=== PATIENT | male | born 1995 | race Caucasian/White ===

== ENCOUNTER 2016-08-03 07:36 | Emergency (ER) | payer OTHER ==
[2016-08-03 07:51] VITALS: BP 155/70; PULSE 97; RESP 18; TEMP 98.6
--- NOTE | 2016-08-03 08:04 | ED ---
General Adult HPI - General Chief complaint: ENT Stated complaint: Stomach pain/sore throat Time Seen by Provider: 08/03/16 07:40 Source: patient, RN notes reviewed Mode of arrival: ambulatory Limitations: no limitations - History of Present Illness Initial comments: This is a 20-year-old male with a benign history other than smoking history who had the onset over last 1-2 weeks of a cough sometimes productive with yellow phlegm he is at some chills and sweats with it he states he coughed so hard that he will sometimes vomit. He had a slight amount of blood last time he vomited. He states he had a sore throat with plugged up sinuses he started over -the-counter medication with no improvement. Also of note other members of the family are also experiencing similar symptoms. He denies any overt rhinorrhea however. - Related Data Home Medications Medication Instructions Recorded Confirmed Cough Medicine Otc (Unknown) 1 dose PO Q4H PRN 08/03/16 08/03/16 guaiFENesin [Mucinex] 600 mg PO Q12H PRN 08/03/16 08/03/16 Previous Rx's Medication Instructions Recorded Albuterol Inhaler [Ventolin Hfa 2 puff INHALATION Q6HR PRN #1 08/03/16 Inhaler] inhaler Azithromycin [Zithromax Z-pack] 250 mg PO DIRECTED #6 tab 08/03/16 Allergies Allergy/AdvReac Type Severity Reaction Status Date / Time No Known Allergies Allergy Verified 01/10/16 15:38 Review of Systems ROS Statement: Those systems with pertinent positive or pertinent negative responses have been documented in the HPI. ROS Other: All systems not noted in ROS Statement are negative. Past Medical History Past Medical History: No Reported History History of Any Multi-Drug Resistant Organisms: None Reported Past Surgical History: No Surgical Hx Reported Past Psychological History: ADD/ADHD Smoking Status: Current every day smoker Past Alcohol Use History: None Reported Past Drug Use History: None Reported General Exam - General Exam Comments Initial Comments: This is a well-developed well-nourished awake alert oriented 3 male Limitations: no limitations General appearance: alert, in no apparent distress Head exam: Present: atraumatic, normocephalic, normal inspection Eye exam: Present: normal appearance, PERRL, EOMI. Absent: scleral icterus, conjunctival injection, periorbital swelling Pupils: Present: normal accommodation ENT exam: Present: mucous membranes moist, TM's normal bilaterally, other ( Minimal pharyngeal hyperemia no exudates) Neck exam: Present: normal inspection. Absent: tenderness, meningismus, lymphadenopathy Respiratory exam: Present: chest wall tenderness (Some right lateral and anterior chest wall tenderness palpation no step-off or crepitation), decreased breath sounds Cardiovascular Exam: Present: regular rate, normal rhythm, normal heart sounds. Absent: systolic murmur, diastolic murmur, rubs, gallop, clicks GI/Abdominal exam: Present: soft Extremities exam: Present: normal inspection, full ROM, normal capillary refill. Absent: tenderness, pedal edema, joint swelling, calf tenderness Back exam: Present: normal inspection Neurological exam: Present: alert, oriented X3, CN II-XII intact Psychiatric exam: Present: normal affect, normal mood Skin exam: Present: warm, dry, intact, normal color. Absent: rash Course Vital Signs 08/03/16 07:47 Temperature 98.6 F Pulse Rate 97 Respiratory 18 Rate Blood Pressure 155/70 O2 Sat by Pulse 98 Oximetry Medical Decision Making - Medical Decision Making I did discuss the findings with the patient including smoking cessation which the conversation included the need for stopping and risk factors. I did discuss this with the patient for about 3.2 minutes. Patient be placed on appropriate antibiotics and inhaler a note for work. - Radiology Data Radiology results: report reviewed (X-ray was reviewed and report was reviewed there is evidence of a early infiltrate right upper lobe left lower lobe.), image reviewed Disposition Clinical Impression: Pneumonia, Smoking Disposition: HOME SELF-CARE Condition: Good Instructions: Bacterial Pneumonia (ED), How to Stop Smoking (ED), Secondhand Smoke Exposure in Children (ED) Prescriptions: Albuterol Inhaler [Ventolin Hfa Inhaler] 2 puff INHALATION Q6HR PRN #1 inhaler PRN Reason: Dyspnea Azithromycin [Zithromax Z-pack] 250 mg PO DIRECTED #6 tab
--- NOTE | 2016-08-03 08:37 | XR ---
EXAMINATION TYPE: XR chest 2V DATE OF EXAM: 08/03/2016 8:22 AM COMPARISON: None HISTORY: 20-year-old male trauma, cough and congestion TECHNIQUE: PA and lateral views FINDINGS: The cardiomediastinal silhouette, aorta, and pulmonary vasculature are within normal limits. There is mild diffuse increased interstitial densities and some subtle patchy density suggested in the right perihilar region and along the left heart margin. No pleural effusion. No pneumothorax. IMPRESSION: Some changes which suggest bronchitis or uncontrolled asthma. However, opacity is somewhat more focal at the right suprahilar region and along the left base. These could represent areas of atelectasis o r early developing infiltrates.
== END 2016-08-03 09:58 | disposition home or self-care (01) ==
LOC: EC 07:36
DX: J18.9 Pneumonia, unspecified organism (principal); F17.200 Nicotine dependence, unspecified, uncomplicated
CPT/HCPCS: 71020; 99284

== ENCOUNTER → 2017-04-13 | Outpatient (CLI) | payer OTHER ==
[2017-04-13 18:25] LABS: Basophils % (A) 0 %; CH 30.5; CHCM 32.1; Eosinophils # (A) 0.1 k/uL (0-0.7); Eosinophils % (A) 2 %; HCT 51.1 % (39.0-53.0); HGB 16.2 gm/dL (13.0-17.5); Luc # (Auto) 0.13; Luc % (Auto) 2; Lymphocytes # (A) 1.7 k/uL (1.0-4.8); Lymphocytes % (A) 30 %; MCH 30.2 pg (25.0-35.0); MCHC 31.6 g/dL (31.0-37.0); MCV 95.3 fL (80.0-100.0); Monocytes # (A) 0.3 k/uL (0-1.0); Monocytes % (A) 5 %; Neutrophils # (A) 3.5 k/uL (1.3-7.7); Neutrophils % (A) 61 %; RBC 5.36 m/uL (4.30-5.90); RDW 12.8 % (11.5-15.5); WBC 5.8 k/uL (3.8-10.6); WBC (Perox) 5.62
[2017-04-13 18:32] LABS: ALT 35 U/L (21-72); AST 24 U/L (17-59); Alkaline Phosphatase 100 U/L (38-126); Anion Gap 12 mmol/L; Blood Urea Nitrogen 14 mg/dL (9-20); Carbon Dioxide 24 mmol/L (22-30); Chloride 106 mmol/L (98-107); Cholesterol 160 mg/dL (<200); Glucose 95 mg/dL (74-99); HDL Cholesterol 59 mg/dL (40-60); Non-African American GFR(MDRD) >60 (>60 ml/min/1.73 sqM); Potassium 4.1 mmol/L (3.5-5.1); Sodium 142 mmol/L (137-145); Total Bilirubin 0.4 mg/dL (0.2-1.3); Total Protein 6.9 g/dL (6.3-8.2)
== END | disposition home or self-care (01) ==
LOC: MMGSC 11:14
PROVIDERS: ATTEND Family Medicine
DX: Z00.00 Encounter for general adult medical examination without abnormal findings (principal)
CPT/HCPCS: 36415; 80053; 80061; 84439; 84443; 85025

== ENCOUNTER 2022-04-12 13:04 | Emergency (ER) | payer OTHER ==
[2022-04-12 13:10] VITALS: BP 125/79; PULSE 85; RESP 16; TEMP 98
[2022-04-12] MEDS ORDERED: ACET/COD 300 MG/30 MG STARTER PACK 6 TAB BTL PO STA (13:44)
[2022-04-12] MEDS ORDERED: HYDROcodone/APAP 5-325MG 1 EACH TAB PO STA (13:44)
--- NOTE | 2022-04-12 13:45 | ED ---
ENT HPI - General Chief complaint: Dental/Oral Stated complaint: Tooth ache Time Seen by Provider: 04/12/22 13:12 Source: patient, old records reviewed Mode of arrival: ambulatory Limitations: no limitations - History of Present Illness Initial comments: This is a 26-year-old male presents emergency Department chief complaint of right lower dental pain. Patient states that it's increase last few days. Patient states he he continues to have worsening discomfort in the right lower area Patient states he called his dentist was told he 6 months for acute follow- up. Patient denies any fevers or chills no difficulty swallowing states pain is radiating up around the area. Patient denies any relief with knmu-eld-nwvih[facility] pain medications. Patient has NO KNOWN DRUG ALLERGIES no reported fever - Related Data Home Medications Medication Instructions Recorded Confirmed Cough Medicine Otc (Unknown) 1 dose PO Q4H PRN 08/03/16 08/03/16 guaiFENesin [Mucinex] 600 mg PO Q12H PRN 08/03/16 08/03/16 Previous Rx's Medication Instructions Recorded Albuterol Inhaler [Ventolin Hfa 2 puff INHALATION Q6HR PRN #1 08/03/16 Inhaler] inhaler Azithromycin [Zithromax Z-pack] 250 mg PO DIRECTED #6 tab 08/03/16 Ibuprofen [Motrin] 600 mg PO Q8HR PRN #20 tab 04/12/22 Penicillin V Potassium [Pen Vee K] 500 mg PO QID #40 tablet 04/12/22 Allergies Allergy/AdvReac Type Severity Reaction Status Date / Time No Known Allergies Allergy Verified 01/10/16 15:38 Review of Systems ROS Statement: Those systems with pertinent positive or pertinent negative responses have been documented in the HPI. ROS Other: All systems not noted in ROS Statement are negative. Past Medical History Past Medical History: No Reported History History of Any Multi-Drug Resistant Organisms: None Reported Past Surgical History: No Surgical Hx Reported Past Psychological History: ADD/ADHD Smoking Status: Current every day smoker Past Alcohol Use History: None Reported Past Drug Use History: None Reported General Exam Limitations: no limitations General appearance: alert, in no apparent distress Head exam: Present: atraumatic, normocephalic, normal inspection Eye exam: Present: normal appearance, PERRL, EOMI. Absent: scleral icterus, conjunctival injection, periorbital swelling ENT exam: Present: mucous membranes moist, TM's normal bilaterally. Absent: normal oropharynx (Right lower dental fracture slightly impacted molar, mild erythema no abscess) Neck exam: Present: normal inspection, full ROM. Absent: tenderness, meningismus, lymphadenopathy Respiratory exam: Present: normal lung sounds bilaterally. Absent: respiratory distress, wheezes, rales, rhonchi, stridor Cardiovascular Exam: Present: regular rate, normal rhythm, normal heart sounds. Absent: systolic murmur, diastolic murmur, rubs, gallop, clicks Skin exam: Present: warm, dry, intact, normal color. Absent: rash Course Vital Signs 04/12/22 13:09 Temperature 98 F Pulse Rate 85 Respiratory 16 Rate Blood Pressure 125/79 O2 Sat by Pulse 99 Oximetry Medical Decision Making - Medical Decision Making 26-year-old presented for dental pain. Patient presents penicillin will be given Tylenol codeine follow-up with dental clinic or local dentist return parameters were discussed. Disposition Clinical Impression: Fracture of tooth, Toothache Disposition: HOME SELF-CARE Condition: Stable Instructions (If sedation given, give patient instructions): Toothache (ED) Additional Instructions: Please return to the Emergency Department if symptoms worsen or any other concerns.Please follow up with the [facility] dental [facility]. [facility] [place] [address]. Phone number for new patients or [phone] for existing patients. Prescriptions: Ibuprofen [Motrin] 600 mg PO Q8HR PRN #20 tab PRN Reason: Pain Penicillin V Potassium [Pen Vee K] 500 mg PO QID #40 tablet Is patient prescribed a controlled substance at d/c from ED?: No Referrals: None,Stated [Primary Care Provider] - 1-2 days Time of Disposition: 13:45
== END 2022-04-12 14:05 | disposition home or self-care (01) ==
LOC: EC 13:04
DX: K08.89 Other specified disorders of teeth and supporting structures (principal); F17.210 Nicotine dependence, cigarettes, uncomplicated
CPT/HCPCS: 99282

== ENCOUNTER 2022-06-22 08:45 | Emergency (ER) | payer OTHER ==
[2022-06-22 08:48] VITALS: BP 133/72; PULSE 71; RESP 22; TEMP 98.9
[2022-06-22] MEDS ORDERED: HYDROcodone/APAP 5-325MG 1 EACH TAB PO STA (09:05)
[2022-06-22] MEDS ORDERED: ACET/COD 300 MG/30 MG STARTER PACK 6 TAB BTL PO STA (09:05)
--- NOTE | 2022-06-22 09:06 | ED ---
ENT HPI - General Chief complaint: Dental/Oral Stated complaint: dental pain Time Seen by Provider: 06/22/22 08:46 Source: patient, RN notes reviewed Mode of arrival: ambulatory Limitations: no limitations - History of Present Illness Initial comments: 26-year-old male presents emergency Department chief complaint of dental pain. Patient states from a left lower. Patient states he has a cracked molar. Patient states he also some mild right lower. Patient states he is unable to get into a dentist she's called [facility] he states there months out. Patient denies any fever but states he's had chills, sweats. Patient denies any difficulty opening and closing his mouth, no swelling. Patient has normal drug ALLERGIES. Patient offers no other associated complaints. - Related Data Home Medications Medication Instructions Recorded Confirmed Cough Medicine Otc (Unknown) 1 dose PO Q4H PRN 08/03/16 08/03/16 guaiFENesin [Mucinex] 600 mg PO Q12H PRN 08/03/16 08/03/16 Previous Rx's Medication Instructions Recorded Albuterol Inhaler [Ventolin Hfa 2 puff INHALATION Q6HR PRN #1 08/03/16 Inhaler] inhaler Azithromycin [Zithromax Z-pack] 250 mg PO DIRECTED #6 tab 08/03/16 Ibuprofen [Motrin] 600 mg PO Q8HR PRN #20 tab 04/12/22 Penicillin V Potassium [Pen Vee K] 500 mg PO QID #40 tablet 04/12/22 Amoxic-Pot Clav 875-125Mg 1 tab PO Q12HR #20 tab 06/22/22 [Augmentin 875-125] Ibuprofen [Motrin] 600 mg PO Q8HR PRN #30 tab 06/22/22 Allergies Allergy/AdvReac Type Severity Reaction Status Date / Time No Known Allergies Allergy Verified 06/22/22 08:48 Review of Systems ROS Statement: Those systems with pertinent positive or pertinent negative responses have been documented in the HPI. ROS Other: All systems not noted in ROS Statement are negative. Past Medical History Past Medical History: No Reported History History of Any Multi-Drug Resistant Organisms: None Reported Past Surgical History: No Surgical Hx Reported Past Psychological History: ADD/ADHD Smoking Status: Current every day smoker Past Alcohol Use History: None Reported Past Drug Use History: None Reported General Exam Limitations: no limitations General appearance: alert, in no apparent distress Head exam: Present: atraumatic, normocephalic, normal inspection Eye exam: Present: normal appearance, PERRL, EOMI. Absent: scleral icterus, conjunctival injection, periorbital swelling ENT exam: Present: mucous membranes moist. Absent: normal oropharynx (Dental fracture, left lower no drainable abscess mild erythema no trismus) Neck exam: Present: normal inspection, full ROM. Absent: tenderness, meningismus, lymphadenopathy Respiratory exam: Present: normal lung sounds bilaterally. Absent: respiratory distress, wheezes, rales, rhonchi, stridor Cardiovascular Exam: Present: regular rate, normal rhythm, normal heart sounds. Absent: systolic murmur, diastolic murmur, rubs, gallop, clicks Course Vital Signs 06/22/22 08:46 Temperature 98.9 F Pulse Rate 71 Respiratory 22 Rate Blood Pressure 133/72 O2 Sat by Pulse 98 Oximetry Medical Decision Making - Medical Decision Making 26-year-old presented for dental pain. Patient has dental fracture, impacted molars no drainable abscess will be started on oral antibiotics with follow-up return parameters were discussed. Pain control provided. Disposition Clinical Impression: Fracture of tooth, Toothache Disposition: HOME SELF-CARE Condition: Stable Instructions (If sedation given, give patient instructions): Toothache (ED) Additional Instructions: Please return to the Emergency Department if symptoms worsen or any other concerns. Prescriptions: Amoxic-Pot Clav 875-125Mg [Augmentin 875-125] 1 tab PO Q12HR #20 tab Ibuprofen [Motrin] 600 mg PO Q8HR PRN #30 tab PRN Reason: Pain Is patient prescribed a controlled substance at d/c from ED?: No Referrals: None,Stated [Primary Care Provider] - 1-2 days Time of Disposition: 09:06
== END 2022-06-22 09:18 | disposition home or self-care (01) ==
LOC: EC 08:45
DX: S02.5XXA Fracture of tooth (traumatic), initial encounter for closed fracture (principal); F17.200 Nicotine dependence, unspecified, uncomplicated; X58.XXXA Exposure to other specified factors, initial encounter
CPT/HCPCS: 99282

== ENCOUNTER 2022-07-25 16:48 | Emergency (ER) | payer OTHER ==
[2022-07-25 16:51] VITALS: BP 135/75; PULSE 90; RESP 18; TEMP 98.1
[2022-07-25] MEDS ORDERED: KETOROLAC 15 MG/ML 1 ML VIAL IM STA (16:58)
[2022-07-25] MEDS ORDERED: AMOXIC-POT CLAV 875-125MG 1 EACH TAB PO STA (16:58)
[2022-07-25] MEDS ORDERED: ACET/COD 300 MG/30 MG STARTER PACK 6 TAB BTL PO STA (17:00)
--- NOTE | 2022-07-25 17:01 | ED ---
ENT HPI - General Chief complaint: Dental/Oral Stated complaint: dental pain Time Seen by Provider: 07/25/22 16:53 Source: patient Mode of arrival: ambulatory Limitations: no limitations - History of Present Illness Initial comments: Patient is a 26-year-old male presenting with chief complaint of dental pain. Patient has been having pain to the left lower side for a few days. He has an appointment scheduled with a dentist in [place] in 3 weeks but today the pain was too much for him to handle at home. He has been taking Motrin 600 without relief. No fever or chills. No difficulty breathing or swallowing. No neck pain or stiffness. No headache or vision or hearing changes. No chest pain, palpitations, weakness. No nausea or vomiting. No trismus or brawny induration. - Related Data Home Medications Medication Instructions Recorded Confirmed Cough Medicine Otc (Unknown) 1 dose PO Q4H PRN 08/03/16 08/03/16 guaiFENesin [Mucinex] 600 mg PO Q12H PRN 08/03/16 08/03/16 Previous Rx's Medication Instructions Recorded Albuterol Inhaler [Ventolin Hfa 2 puff INHALATION Q6HR PRN #1 08/03/16 Inhaler] inhaler Azithromycin [Zithromax Z-pack] 250 mg PO DIRECTED #6 tab 08/03/16 Ibuprofen [Motrin] 600 mg PO Q8HR PRN #20 tab 04/12/22 Penicillin V Potassium [Pen Vee K] 500 mg PO QID #40 tablet 04/12/22 Amoxic-Pot Clav 875-125Mg 1 tab PO Q12HR #20 tab 06/22/22 [Augmentin 875-125] Ibuprofen [Motrin] 600 mg PO Q8HR PRN #30 tab 06/22/22 Amoxic-Pot Clav 875-125Mg 1 tab PO Q12HR 10 Days #20 tab 07/25/22 [Augmentin 875-125] Allergies Allergy/AdvReac Type Severity Reaction Status Date / Time No Known Allergies Allergy Verified 07/25/22 16:51 Review of Systems ROS Statement: Those systems with pertinent positive or pertinent negative responses have been documented in the HPI. ROS Other: All systems not noted in ROS Statement are negative. Past Medical History Past Medical History: No Reported History History of Any Multi-Drug Resistant Organisms: None Reported Past Surgical History: No Surgical Hx Reported Past Psychological History: ADD/ADHD Smoking Status: Current every day smoker Past Alcohol Use History: None Reported Past Drug Use History: None Reported General Exam Limitations: no limitations General appearance: alert, in no apparent distress Head exam: Present: atraumatic, normocephalic, normal inspection Eye exam: Present: normal appearance Expanded Mouth exam: Present: tongue normal. Absent: drooling, trismus, muffled voice Teeth exam: Present: dental caries, fractured tooth #, dental tenderness #. Absent: gingival enlargement Throat exam: normal inspection Neck exam: Present: normal inspection, full ROM Neurological exam: Present: alert, oriented X3, CN II-XII intact Psychiatric exam: Present: normal affect, normal mood Skin exam: Present: warm, dry, intact, normal color. Absent: rash Course Vital Signs 07/25/22 16:49 Temperature 98.1 F Pulse Rate 90 Respiratory 18 Rate Blood Pressure 135/75 O2 Sat by Pulse 99 Oximetry Medical Decision Making - Medical Decision Making Was pt. sent in by a medical professional or institution (, PA, [employer], urgent care, hospital, or [place] [facility] [place] facility...) When possible be specific @ -[No] Did you speak to anyone other than the patient for history (EMS, parent, family, police, friend...)? What history was obtained from this source @ -[No] Did you review nursing and triage notes (agree or disagree)? Why? @ -[I reviewed and agree with nursing and triage notes] Were old charts reviewed (outside hosp., previous admission, EMS record, old EKG, old radiological studies, urgent care reports/EKG's, [place] health [place] facility records)? Report findings @ -[No old charts were reviewed] Differential Diagnosis (chest pain, altered mental status, abdominal pain women, abdominal pain men, vaginal bleeding, weakness, fever, dyspnea, syncope, headache, dizziness, GI bleed, back pain, seizure, CVA, palpatations, mental health)? @ -Differential includes tooth pain, dental abscess, Robert's angina, this is not meant to be an all inclusive list EKG interpreted by me (3pts min.). @ -[As above] X-rays interpreted by me (1pt min.). @ -[None done] CT interpreted by me (1pt min.). @ -[None done] U/S interpreted by me (1pt. min.). @ -[None done] What testing was considered but not performed or refused? (CT, X-rays, U/S, labs)? Why? @ -[None] What meds were considered but not given or refused? Why? @ -[None] Did you discuss the management of the patient with other professionals (professionals i.e. DrEd, PA, [employer], lab, RT, psych nurse, community mental health social worker, gravel machine operator, teacher, diplomatic officer, manager rn case)? Give summary @ -[No] Was smoking cessation discussed for >3mins.? @ -[No] Was critical care preformed (if so, how long)? @ -[No] Were there social determinants of health that impacted care today? How? (Homelessness, low income, unemployed, alcoholism, drug addiction, transportation, low edu. Level, literacy, decrease access to med. care, skilled nursing, rehab)? @ -[No] Was there de-escalation of care discussed even if they declined (Discuss DNR or withdrawal of care, Hospice)? DNR status @ -[No] What co-morbidities impacted this encounter? (DM, HTN, Smoking, COPD, CAD, Cancer, CVA, ARF, Chemo, Hep., AIDS, mental health diagnosis, sleep apnea, morbid obesity)? @ -[None] Was patient admitted / discharged? Hospital course, mention meds given and route, prescriptions, significant lab abnormalities, going to OR and other pertinent info. @ -Patient is a 26-year-old female presenting with chief complaint of dental pain which has been present for the last few days. Located on the left lower side. On physical examination there is large tooth fracture and dental caries noted. There is tenderness to palpation. Oral the mouth is soft, no brawny induration. No muffled voice or drooling. Normal posterior pharynx. Patient will be placed on Augmentin and provided with Tylenol 3 starter pack. Patient has appointment with his dentist in 3 weeks. Educated on supportive treatment. Follow-up with PCP and dentist. Report back to ER with any new or worsening symptoms. Discussed return parameters and answered all questions. Patient conveyed verbal understanding and agreed to the plan. I discussed this case in detail with my attending Dr. Rinaldi Undiagnosed new problem with uncertain prognosis? @ -[No] Drug Therapy requiring intensive monitoring for toxicity (Heparin, Nitro, Insulin, Cardizem)? @ -[No] Were any procedures done? @ -[No] Diagnosis/symptom? @ -Dental abscess Acute, or Chronic, or Acute on Chronic? @ -Acute Uncomplicated (without systemic symptoms) or Complicated (systemic symptoms)? @ -Uncomplicated Side effects of treatment? @ -[No] Exacerbation, Progression, or Severe Exacerbation? @ -[No] Poses a threat to life or bodily function? How? (Chest pain, [place], [place], pneumonia, PE, COPD, DKA, ARF, appy, cholecystitis, CVA, Diverticulitis, Homicidal, Suicidal, threat to staff... and all critical care pts) @ -[No] Disposition Clinical Impression: Dental abscess Disposition: HOME SELF-CARE Condition: Good Instructions (If sedation given, give patient instructions): Dental Abscess (ED) Additional Instructions: Follow up with dentist. Report back to ER with any new or worsening symptoms. Take medication as prescribed. Take Motrin and Tylenol as needed for pain control. Prescriptions: Amoxic-Pot Clav 875-125Mg [Augmentin 875-125] 1 tab PO Q12HR 10 Days #20 tab Is patient prescribed a controlled substance at d/c from ED?: No Referrals: None,Stated [Primary Care Provider] - 1-2 days Time of Disposition: 17:01
== END 2022-07-25 17:24 | disposition home or self-care (01) ==
LOC: EC 16:48
DX: K04.7 Periapical abscess without sinus (principal); F90.9 Attention-deficit hyperactivity disorder, unspecified type; F17.200 Nicotine dependence, unspecified, uncomplicated
CPT/HCPCS: 99283; 96372; J1885

== ENCOUNTER 2023-01-04 11:02 | Emergency (ER) | payer OTHER ==
[2023-01-04] MEDS ORDERED: KETOROLAC 15 MG/ML 1 ML VIAL IM STA (11:44)
[2023-01-04] MEDS ORDERED: IBUPROFEN 800 MG TAB PO STA (11:53)
[2023-01-04] MEDS ORDERED: ACET/COD 300 MG/30 MG STARTER PACK 6 TAB BTL PO STA (12:37)
[2023-01-04] MEDS ORDERED: Acetaminophen-Codeine 300-30mg TAB PO STA (12:37)
--- NOTE | 2023-01-04 12:37 | ED ---
General Adult HPI - General Chief complaint: Dental/Oral Stated complaint: R Side Tooth Pain Time Seen by Provider: 01/04/23 11:26 Source: patient, RN notes reviewed Mode of arrival: ambulatory Limitations: no limitations - History of Present Illness Initial comments: 27-year-old male with no significant past medical history presents the emergency department with a chief complaint of dental pain. Patient reports he to significant dental caries. He reports that he has a dentist appointment coming up 01/25/2023. He denies any fevers, chills, sore throat, dyspnea Tylenol at home with mild symptomatically relief - Related Data Home Medications Medication Instructions Recorded Confirmed Cough Medicine Otc (Unknown) 1 dose PO Q4H PRN 08/03/16 08/03/16 guaiFENesin [Mucinex] 600 mg PO Q12H PRN 08/03/16 08/03/16 Previous Rx's Medication Instructions Recorded Albuterol Inhaler [Ventolin Hfa 2 puff INHALATION Q6HR PRN #1 08/03/16 Inhaler] inhaler Azithromycin [Zithromax Z-pack] 250 mg PO DIRECTED #6 tab 08/03/16 Ibuprofen [Motrin] 600 mg PO Q8HR PRN #20 tab 04/12/22 Penicillin V Potassium [Pen Vee K] 500 mg PO QID #40 tablet 04/12/22 Amoxic-Pot Clav 875-125Mg 1 tab PO Q12HR #20 tab 06/22/22 [Augmentin 875-125] Ibuprofen [Motrin] 600 mg PO Q8HR PRN #30 tab 06/22/22 Amoxic-Pot Clav 875-125Mg 1 tab PO Q12HR 10 Days #20 tab 07/25/22 [Augmentin 875-125] Allergies Allergy/AdvReac Type Severity Reaction Status Date / Time No Known Allergies Allergy Verified 07/25/22 16:51 Review of Systems ROS Statement: Those systems with pertinent positive or pertinent negative responses have been documented in the HPI. ROS Other: All systems not noted in ROS Statement are negative. Past Medical History Past Medical History: No Reported History History of Any Multi-Drug Resistant Organisms: None Reported Past Surgical History: No Surgical Hx Reported Past Psychological History: ADD/ADHD Smoking Status: Current every day smoker Past Alcohol Use History: None Reported Past Drug Use History: None Reported General Exam - General Exam Comments Initial Comments: General: Alert, in no acute distress Head: atraumatic normocephalic. Eyes PERRL, EOMI intact, mucous membranes moist, multiple teeth with dental caries. No evidence of dental abscess. Airway patent. Respiratory: Lungs clear to auscultation bilaterally Cardiovascular: Heart rate regular rate and rhythm Abdominal: Soft without guarding or rebound Extremities: Normal inspection with full range of motion and normal capillary refill Neuroogic: alert and oriented 3, CN II-XII intact, able to ambulate with steady gait Skin: warm dry and intact with normal color Limitations: no limitations Course Vital Signs 01/04/23 01/04/23 11:22 12:54 Temperature 97.5 F L 98.0 F Pulse Rate 90 62 Respiratory 16 18 Rate Blood Pressure 109/75 104/65 O2 Sat by Pulse 100 100 Oximetry Medical Decision Making - Medical Decision Making Was pt. sent in by a medical professional or institution (, PA, CASING FINISHER AND STUFFER, urgent care, hospital, or penitentiary...) When possible be specific @ -[No] Did you speak to anyone other than the patient for history (EMS, parent, family, police, friend...)? What history was obtained from this source @ -[No] Did you review nursing and triage notes (agree or disagree)? Why? @ -[I reviewed and agree with nursing and triage notes] Were old charts reviewed (outside hosp., previous admission, EMS record, old EKG, old radiological studies, urgent care reports/EKG's, penitentiary records)? Report findings @ -[No old charts were reviewed] Differential Diagnosis (chest pain, altered mental status, abdominal pain women, abdominal pain men, vaginal bleeding, weakness, fever, dyspnea, syncope, headache, dizziness, GI bleed, back pain, seizure, CVA, palpatations, mental health, musculoskeletal)? @ -[not applicable] EKG interpreted by me (3pts min.). @ -[As above] X-rays interpreted by me (1pt min.). @ -[None done] CT interpreted by me (1pt min.). @ -[None done] U/S interpreted by me (1pt. min.). @ -[None done] What testing was considered but not performed or refused? (CT, X-rays, U/S, labs)? Why? @ -[None] What meds were considered but not given or refused? Why? @ -[None] Did you discuss the management of the patient with other professionals (professionals i.e. , PA, CASING FINISHER [employer] STUFFER, lab, RT, psych nurse, sr. social media & mobile manager, laborer marine terminal, teacher, sheriff officer, family caseworker)? Give summary @ -[No] Was smoking cessation discussed for >3mins.? @ -[No] Was critical care preformed (if so, how long)? @ -[No] Were there social determinants of health that impacted care today? How? (Homelessness, low income, unemployed, alcoholism, drug addiction, transportation, low edu. Level, literacy, decrease access to med. care, long-term, rehab)? @ -[No] Was there de-escalation of care discussed even if they declined (Discuss DNR or withdrawal of care, Hospice)? DNR status @ -[No] What co-morbidities impacted this encounter? (DM, HTN, Smoking, COPD, CAD, Cancer, CVA, ARF, Chemo, Hep., AIDS, mental health diagnosis, sleep apnea, morbid obesity)? @ -[None] Was patient admitted / discharged? Hospital course, mention meds given and route, prescriptions, significant lab abnormalities, going to OR and other pertinent info. @ -Charts. This is a 27-year-old male presents to the emergency department dental pain. Patient had a thorough history and physical exam performed physical exam reveals poor dentition and multiple dental caries. No evidence of dental abscess facial swelling. Patient was given Toradol with mild symptomatic relief. He was given a starter pack of Tylenol 3. Return for questions were discussed. Patient discharged in stable condition. Case discuss ed with REJI Falcon who agrees with plan of care Undiagnosed new problem with uncertain prognosis? @ -[No] Drug Therapy requiring intensive monitoring for toxicity (Heparin, Nitro, Insulin, Cardizem)? @ -[No] Were any procedures done? @ -[No] Diagnosis/symptom? @ -Dental Caries - Dental pain Acute, or Chronic, or Acute on Chronic? @ -Acute Uncomplicated (without systemic symptoms) or Complicated (systemic symptoms)? @ -Uncomplicated Side effects of treatment? @ -[No] Exacerbation, Progression, or Severe Exacerbation? @ -[No] Poses a threat to life or bodily function? How? (Chest pain, [place], [place], pneumonia, PE, COPD, DKA, ARF, appy, cholecystitis, CVA, Diverticulitis, Homicidal, Suicidal, threat to staff... and all critical care pts) @ -Low likelihood Disposition Clinical Impression: Dental caries Disposition: HOME SELF-CARE Condition: Stable Instructions (If sedation given, give patient instructions): Toothache (ED) Additional Instructions: Please return to the nearest emergency department if symptoms worsen or persist Is patient prescribed a controlled substance at d/c from ED?: No Referrals: None,Stated [Primary Care Provider] - 1-2 days Time of Disposition: 12:37
[2023-01-04 12:56] VITALS: BP 104/65; PULSE 62; RESP 18; TEMP 98
== END 2023-01-04 12:56 | disposition home or self-care (01) ==
LOC: EC 11:02
DX: K02.9 Dental caries, unspecified (principal); F90.9 Attention-deficit hyperactivity disorder, unspecified type; F17.200 Nicotine dependence, unspecified, uncomplicated; Z79.899 Other long term (current) drug therapy
CPT/HCPCS: 99283

== ENCOUNTER 2023-03-28 10:06 | Emergency (ER) | payer OTHER ==
[2023-03-28 10:33] VITALS: RESP 20
[2023-03-28] MEDS ORDERED: HYDROcodone/APAP 7.5-325MG 1 EACH TAB PO ONE (11:00)
--- NOTE | 2023-03-28 11:22 | ED ---
General Adult HPI - General Chief complaint: Urogenital Stated complaint: L Jaw Pain, Abscess Tooth Time Seen by Provider: 03/28/23 10:37 Source: patient, RN notes reviewed Mode of arrival: ambulatory Limitations: no limitations - History of Present Illness Initial comments: 19-year-old male presents emergency from chief complaint of left lower dental pa in, scrotal pain. Patient states that he's been ill back to the states he was told 6 months for follow-up. Patient states that there is broken tooth, infected tooth. Patient admits to fevers and chills. Patient denies any chest pain or shortness breath or difficulty breathing at bedtime complains of cystic her pain, swelling last couple days no dysuria. - Related Data Home Medications Medication Instructions Recorded Confirmed Cough Medicine Otc (Unknown) 1 dose PO Q4H PRN 08/03/16 08/03/16 guaiFENesin [Mucinex] 600 mg PO Q12H PRN 08/03/16 08/03/16 Previous Rx's Medication Instructions Recorded Albuterol Inhaler [Ventolin Hfa 2 puff INHALATION Q6HR PRN #1 08/03/16 Inhaler] inhaler Azithromycin [Zithromax Z-pack] 250 mg PO DIRECTED #6 tab 08/03/16 Ibuprofen [Motrin] 600 mg PO Q8HR PRN #20 tab 04/12/22 Penicillin V Potassium [Pen Vee K] 500 mg PO QID #40 tablet 04/12/22 Amoxic-Pot Clav 875-125Mg 1 tab PO Q12HR #20 tab 06/22/22 [Augmentin 875-125] Ibuprofen [Motrin] 600 mg PO Q8HR PRN #30 tab 06/22/22 Amoxic-Pot Clav 875-125Mg 1 tab PO Q12HR 10 Days #20 tab 07/25/22 [Augmentin 875-125] Amoxic-Pot Clav 875-125Mg 1 tab PO Q12HR #20 tab 03/28/23 [Augmentin 875-125] Ibuprofen [Motrin] 600 mg PO Q8HR PRN #20 tab 03/28/23 Allergies Allergy/AdvReac Type Severity Reaction Status Date / Time No Known Allergies Allergy Verified 03/28/23 10:30 Review of Systems ROS Statement: Those systems with pertinent positive or pertinent negative responses have been documented in the HPI. ROS Other: All systems not noted in ROS Statement are negative. Past Medical History Past Medical History: No Reported History History of Any Multi-Drug Resistant Organisms: None Reported Past Surgical History: No Surgical Hx Reported Past Psychological History: ADD/ADHD Smoking Status: Former smoker Past Alcohol Use History: None Reported Past Drug Use History: Marijuana General Exam Limitations: no limitations General appearance: alert, in no apparent distress Head exam: Present: atraumatic, normocephalic, normal inspection Eye exam: Present: PERRL, EOMI. Absent: normal appearance, scleral icterus, conjunctival injection, periorbital swelling ENT exam: Present: mucous membranes moist. Absent: normal exam, normal oropharynx (Dental fracture, poor dentition no drainable abscess left lower) Neck exam: Present: normal inspection. Absent: tenderness, meningismus, lymphadenopathy Respiratory exam: Present: normal lung sounds bilaterally. Absent: respiratory distress, wheezes, rales, rhonchi, stridor Cardiovascular Exam: Present: regular rate GI/Abdominal exam: Present: soft, normal bowel sounds. Absent: distended, tenderness, guarding, rebound, rigid exam: Present: testicular tenderness, scrotal swelling Course Vital Signs 03/28/23 10:28 Temperature 98.1 F Pulse Rate 99 Respiratory 20 Rate Blood Pressure 130/55 O2 Sat by Pulse 98 Oximetry Medical Decision Making - Medical Decision Making Was pt. sent in by a medical professional or institution (Dr. PA, SQL DEVELOPER, urgent care, hospital, or shelter...) When possible be specific @ -No Did you speak to anyone other than the patient for history (EMS, parent, family, police, friend...)? What history was obtained from this source @ -No Did you review nursing and triage notes (agree or disagree)? Why? @ -I reviewed and agree with nursing and triage notes Were old charts reviewed (outside hosp., previous admission, EMS record, old EKG, old radiological studies, urgent care reports/EKG's, shelter records)? Report findings @ -No old charts were reviewed Differential Diagnosis (chest pain, altered mental status, abdominal pain women, abdominal pain men, vaginal bleeding, weakness, fever, dyspnea, syncope, headache, dizziness, GI bleed, back pain, seizure, CVA, palpatations, mental health, musculoskeletal)? @ -Dental pain, dental infection epididymitis, varicocele EKG interpreted by me (3pts min.). @ -None X-rays interpreted by me (1pt min.). @ -None done CT interpreted by me (1pt min.). @ -None done U/S interpreted by me (1pt. min.). @ -Ultrasound shows evidence of varicocele. What testing was considered but not performed or refused? (CT, X-rays, U/S, labs)? Why? @ -None What meds were considered but not given or refused? Why? @ -None Did you discuss the management of the patient with other professionals (professionals i.e. , PA, SQL DEVELOPER, lab, RT, psych nurse, dialysis social worker, emergency room orderly, teacher, county health officer, piano case and bench assembler)? Give summary @ -No Was smoking cessation discussed for >3mins.? @ -No Was critical care preformed (if so, how long)? @ -No Were there social determinants of health that impacted care today? How? (Homelessness, low income, unemployed, alcoholism, drug addiction, transportation, low edu. Level, literacy, decrease access to med. care, correction, rehab)? @ -No Was there de-escalation of care discussed even if they declined (Discuss DNR or withdrawal of care, Hospice)? DNR status @ -No What co-morbidities impacted this encounter? (DM, HTN, Smoking, COPD, CAD, Cancer, CVA, ARF, Chemo, Hep., AIDS, mental health diagnosis, sleep apnea, morbid obesity)? @ -None Was patient admitted / discharged? Hospital course, mention meds given and route, prescriptions, significant lab abnormalities, going to OR and other pertinent info. @ -Discharge patient has dental infection. Patient also has noted varicocele on ultrasound. Patient is provided supportive treatment patient follow-up urology as needed. Patient follow-up with dentist. Undiagnosed new problem with uncertain prognosis? @ -No Drug Therapy requiring intensive monitoring for toxicity (Heparin, Nitro, Insulin, Cardizem)? @ -No Were any procedures done? @ -No Diagnosis/symptom? @ -Varicocele, dental infection Acute, or Chronic, or Acute on Chronic? @ -Acute Uncomplicated (without systemic symptoms) or Complicated (systemic symptoms)? @ -Uncomplicated Side effects of treatment? @ -No Exacerbation, Progression, or Severe Exacerbation? @ -No Poses a threat to life or bodily function? How? (Chest pain, [place], [place], pneumonia, PE, COPD, DKA, ARF, appy, cholecystitis, CVA, Diverticulitis, Homicidal, Suicidal, threat to staff... and all critical care pts) @ -No Disposition Clinical Impression: Varicocele, Dental infection Disposition: HOME SELF-CARE Condition: Stable Instructions (If sedation given, give patient instructions): Varicocele (ED) Additional Instructions: Please return to the Emergency Department if symptoms worsen or any other concerns. Prescriptions: Amoxic-Pot Clav 875-125Mg [Augmentin 875-125] 1 tab PO Q12HR #20 tab Ibuprofen [Motrin] 600 mg PO Q8HR PRN #20 tab PRN Reason: Pain Is patient prescribed a controlled substance at d/c from ED?: No Referrals: None,Stated [Primary Care Provider] - 1-2 days Tonio Weiss MD [STAFF PHYSICIAN] - 1-2 days Time of Disposition: 12:35
--- NOTE | 2023-03-28 12:06 | US ---
EXAMINATION TYPE: US scrotum with doppler. Grayscale and color Doppler Duplex imaging performed of ant tolentino scrotum. DATE OF EXAM: 03/28/2023 COMPARISON: NONE CLINICAL INDICATION: Male, 27 years old with history of pain,swelling; Left testicular pain EXAM MEASUREMENTS: TESTICLES: Right Testicle: 4.3 x 2.4 x 2.8 cm Left Testicle: 4.2 x 2.0 x 2.4 cm EPIDIDYMIS HEAD: Right Epididymis: 1.3 cm Left Epididymis: 1.2 cm Doppler performed to assess for testicular vascularity; good bilateral color flow and waveforms are s een. There is no evidence of testicular torsion. Presence of hydroceles: right 2.4cm, left 1.8cm Presence of varicoceles: prominent vessels posterior to left testicle IMPRESSION: 1. Left varicocele. 2. Appropriate arterial and venous spectral waveforms to the testes. 3. Trace bilateral hydroceles.
[2023-03-28] MEDS ORDERED: ACET/COD 300 MG/30 MG STARTER PACK 6 TAB BTL PO STA (12:35)
[2023-03-28 13:00] VITALS: BP 126/70; PULSE 90; TEMP 98
== END 2023-03-28 12:57 | disposition home or self-care (01) ==
LOC: EC 10:06
DX: I86.1 Scrotal varices (principal); K04.7 Periapical abscess without sinus; K03.81 Cracked tooth; F12.90 Cannabis use, unspecified, uncomplicated; Z87.891 Personal history of nicotine dependence
CPT/HCPCS: 76870; 93975; 99284